=== PATIENT | female | born 1955 | race Caucasian/White ===

== ENCOUNTER → 2016-12-04 | Outpatient (CLI) | payer MEDICARE ==
[2016-12-04 13:46] LABS: BUN 42 mg/dL (7-18)
[2016-12-04 13:48] LABS: GFR (ESTIMATED) 31 ML/MIN (59-)
== END ==
LOC: CARL-LAB 11:17
PROVIDERS: Internal Medicine Nephrology
DX: N17.9 Acute kidney failure, unspecified (principal)

== ENCOUNTER → 2017-01-22 | Outpatient (CLI) | payer MEDICARE ==
[2017-01-22 14:30] LABS: BUN 38 mg/dL (7-18)
[2017-01-22 14:31] LABS: GFR (ESTIMATED) 42 ML/MIN (59-)
== END ==
LOC: CARL-LAB 11:26
PROVIDERS: Internal Medicine Nephrology
DX: I10 Essential (primary) hypertension (principal)

== ENCOUNTER → 2017-03-13 | Outpatient (CLI) | payer MEDICARE ==
[2017-03-13 14:18] LABS: BUN 32 mg/dL (7-18)
[2017-03-13 14:23] LABS: GFR (ESTIMATED) 38 ML/MIN (59-)
== END ==
LOC: LAB 12:04
PROVIDERS: Internal Medicine Nephrology
DX: N18.3 Chronic kidney disease, stage 3 (moderate) (principal)